=== PATIENT | male | born 1960 | race Two or more races ===

== ENCOUNTER → 2024-05-13 | Outpatient (CLI) | payer BC, SELFPAY ==
--- NOTE | 2024-05-13 07:00 | XR_ITS ---
Examination: MRI right foot, without contrast Date and time of exam: May 13, 2024 0713 hours INDICATIONS: Redness swelling and pain involving the first digit 2 months Technique: Multiple axial sagittal and coronal images of the right foot have been obtained with the Siemens high-resolution 1.5 Hemalatha MRI scanner. Images obtained include T2-weighted fat-suppressed sagittal sections, TR 3500, TE 46, T2 weighted coronal fat suppressed images, TR 3050, TE 84, T2-weighted transverse fat suppressed images, TR 3260, TE 63, proton density transverse images, TR 4720 TE 46, and T1 weighted coronal images, TR 560, TE 13. Findings: Edema in the subcutaneous tissue plantar to the distal phalanx first digit No soft tissue abscess No ghislaine cortical bone destruction No fracture Mild biconvex thickening of the Achilles tendon No opaque foreign bodies IMPRESSION: Mild edema in the subcutaneous tissue plantar to the distal phalanx first digit Negative for osteomyelitis Negative for soft tissue abscess
== END | disposition home or self-care (01) ==
LOC: SMRI 06:54
PROVIDERS: PCP Nurse Practitioner Family; Referring Provider Nurse Practitioner Family; Visit Provider Nurse Practitioner Family
DX: M25.474 Effusion, right foot (principal)
CPT/HCPCS: 73718